=== PATIENT | female | born 1975 ===

== ENCOUNTER 2020-08-21 09:12 | Outpatient (CLI) | payer BC | END 2020-08-21 13:52 | disposition home or self-care (01) | LOC: LAB 09:12 | PROVIDERS: ATTEND Specialist | DX: E55.9 Vitamin D deficiency, unspecified (principal); E11.65 Type 2 diabetes mellitus with hyperglycemia; E11.21 Type 2 diabetes mellitus with diabetic nephropathy; M05.10 Rheumatoid lung disease with rheumatoid arthritis of unspecified site; D64.9 Anemia, unspecified; E03.9 Hypothyroidism, unspecified ==

== ENCOUNTER → 2020-08-21 | Outpatient (CLI) | payer BC | END | disposition home or self-care (01) | LOC: RAD 08:30 | PROVIDERS: ATTEND Specialist | DX: H44.5 Degenerated conditions of globe (principal) ==